=== PATIENT | male | born 2005 | race African-American/Black ===

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

== ENCOUNTER 2024-03-01 16:55 | Emergency (ER) | payer MEDICAID, OTHER ==
[~2024-03-01] VITALS: Ht 175.3 cm; Wt 77.3 kg
[~2024-03-01 16:55] MED LIST: ALBU18HF12 IH; IPRA4AER IH
[2024-03-01 16:58] VITALS: BP 107/74; TEMP 97.6
[2024-03-01] MEDS: PredniSONE 20 MG TABLET PO ONE (17:50)
[2024-03-01] MEDS: ALBUTEROL SULFATE HFA 90 MCG/PUFF 8 GM INHALER IH ONE (17:54)
[2024-03-01] MEDS: ALBUTEROL SULFATE 2.5 MG/0.5 ML NEB SOLUTION NEB ONE (17:54)
[2024-03-01] MEDS: IPRATROPIUM BROMIDE 0.5 MG/2.5 ML NEB SOLUTION NEB ONE (17:54)
[2024-03-01 17:56] VITALS: PULSE 78; RESP 18; O2SAT 99
[2024-03-01 18:04] LABS: COVID AG,FIA SOURCE NASAL SWAB
[2024-03-01 18:11] VITALS: PULSE 89; RESP 18; O2SAT 100
[2024-03-01 18:15] VITALS: PULSE 88; RESP 18; O2SAT 100
[2024-03-01 18:30] LABS: SARS-COV2 (COVID) ANTIGEN,FIA Negative (Negative)
[2024-03-01 18:31] LABS: INFLUENZA TYPE A NEGATIVE FOR TYPE A (NEGATIVE); INFLUENZA TYPE B NEGATIVE FOR TYPE B (NEGATIVE)
[2024-03-01] MEDS ORDERED: PRED-554 PO (18:43)
== END 2024-03-01 19:02 | disposition home or self-care (01) ==
LOC: EMS 16:55
DX: J45.909 Unspecified asthma, uncomplicated (principal); Z20.822 Contact with and (suspected) exposure to COVID-19
CPT/HCPCS: 99283; 87426; 87804; 94640; J7512; J3535; 99284

== ENCOUNTER 2024-07-28 01:37 | Emergency (ER) | payer OTHER ==
[~2024-07-28] VITALS: Ht 177.8 cm; Wt 81.8 kg
[~2024-07-28 01:37] MED LIST changes: -ALBU18HF12 IH; -IPRA4AER IH; +PRED-554 PO
[2024-07-28 01:55] VITALS: TEMP 98.105288
[2024-07-28] MEDS: IPRATROPIUM BROMIDE 0.5 MG/2.5 ML NEB SOLUTION NEB ONE ×2 (02:02→03:19)
[2024-07-28] MEDS: ALBUTEROL SULFATE 2.5 MG/0.5 ML 5 ML NEB SOLUTION NEB ONE (02:02)
[2024-07-28 02:19] VITALS: PULSE 100; RESP 20; O2SAT 96
[2024-07-28] MEDS: PredniSONE 20 MG TABLET PO ONE (02:27)
[2024-07-28] MEDS ORDERED: PRED-554 PO (03:14)
[2024-07-28] MEDS: ALBUTEROL SULFATE 2.5 MG/0.5 ML NEB SOLUTION NEB ONE (03:19)
[2024-07-28 03:20] VITALS: PULSE 119; RESP 20; O2SAT 100
[2024-07-28] MEDS: ALBUTEROL SULFATE HFA 90 MCG/PUFF 8 GM INHALER IH ONE (03:25)
[2024-07-28 03:51] VITALS: BP 102/45; PULSE 110; RESP 21; O2SAT 97
== END 2024-07-28 04:16 | disposition home or self-care (01) ==
LOC: EMS 03:10
DX: J45.901 Unspecified asthma with (acute) exacerbation (principal); Z79.52 Long term (current) use of systemic steroids; Z91.09 Other allergy status, other than to drugs and biological substances; Z79.899 Other long term (current) drug therapy
CPT/HCPCS: 99285; 94644; J7512; 94640

== ENCOUNTER 2024-12-31 20:58 | Emergency (ER) | payer OTHER ==
[~2024-12-31] VITALS: Ht 177.8 cm; Wt 88.6 kg
[2024-12-31 21:04] VITALS: BP 128/95; TEMP 98.6; O2SAT 97
[2024-12-31 21:22] LABS: COVID AG,FIA SOURCE NASAL SWAB
[2024-12-31 21:42] LABS: INFLUENZA TYPE A NEGATIVE FOR TYPE A (NEGATIVE); INFLUENZA TYPE B NEGATIVE FOR TYPE B (NEGATIVE); SARS-COV2 (COVID) ANTIGEN,FIA Negative (Negative)
[2024-12-31 21:47] LABS: PLATELET COUNT (AUTO) 170 K/uL (150-450); RED BLOOD CELL COUNT(AUTO) 6.02 MIL/uL (4.50-5.90); RED CELL DISTRIBUTION WIDTH 13.8 % (11.5-14.5); WHITE BLOOD COUNT (AUTO) 6.4 K/uL (4.5-11.0)
[2024-12-31 21:54] LABS: CALCIUM, TOTAL 8.8 mg/dL (8.8-10.5); CREATININE 1.03 mg/dL (0.60-1.30); GLOMERULAR FILTR. RATE CALC > 60 mL/min (>60); GLUCOSE,RANDOM 98 mg/dL (70-110); SODIUM SERUM 144 mmol/L (136-145); UREA NITROGEN, BLOOD 16 mg/dL (7-18)
[2024-12-31 22:05] LABS: TROPONIN I-HIGH SENSITIVITY 4 ng/L (<76)
[2024-12-31] MEDS ORDERED: METH4TAB3 PO (23:36)
[2024-12-31] MEDS ORDERED: ALBU18HF12 IH (23:36)
[2024-12-31] MEDS: DEXAMETHASONE SOD PHOS 4 MG/ML 5 ML VIAL IM ONE (23:50)
[2025-01-01] VITALS: PULSE 106; RESP 20; O2SAT 96
[2025-01-01] MEDS: IPRATROPIUM BROMIDE 0.5 MG/2.5 ML NEB SOLUTION NEB ONE (00:02)
[2025-01-01] MEDS: ALBUTEROL SULFATE 2.5 MG/0.5 ML NEB SOLUTION NEB ONE ×2 (00:02→01:16)
[2025-01-01 00:10] VITALS: PULSE 106; RESP 20; O2SAT 96
[2025-01-01 00:25] VITALS: PULSE 123; RESP 20; O2SAT 100
[2025-01-01 01:18] VITALS: PULSE 113; RESP 22; O2SAT 99
[2025-01-01 01:32] VITALS: PULSE 128; RESP 22; O2SAT 100
[2025-01-01] MEDS: ALBUTEROL SULFATE HFA 90 MCG/PUFF 8 GM INHALER IH ONE (01:39)
[2025-01-01 01:40] VITALS: PULSE 128; RESP 22; O2SAT 100
== END 2025-01-01 01:41 | disposition home or self-care (01) ==
LOC: EMS 20:58
DX: J45.901 Unspecified asthma with (acute) exacerbation (principal); Z20.822 Contact with and (suspected) exposure to COVID-19
CPT/HCPCS: 99285; 71045; 87426; 80048; 84484; 85025; 87804; 36415; 93005; 96372; 94640; J1100; J3535; J7613